=== PATIENT | female | born 1945 | race Caucasian/White ===

== ENCOUNTER 2021-02-12 17:45 | Inpatient (IN) ==
[2021-02-12] MEDS ORDERED: SODIUM CHLORIDE 0.9% 1000ML 1,000 ML IV ONE (18:33)
[2021-02-12] MEDS ORDERED: MoRPHine SULFATE 4 MG/ML 1 ML CARP\\VIAL IV STA (18:33)
[2021-02-12] MEDS ORDERED: ONDANSETRON INJ 2 MG/ML 2 ML VIAL IV STA (18:33)
[2021-02-12 19:31] LABS: Basophils # (auto) 0.01 K/uL (0-0.2); Basophils % (auto) 0.1 %; Eosinophils # (auto) 0.02 K/uL (0-0.5); Eosinophils % (auto) 0.2 %; Hematocrit (blood only) 39.1 % (37-47); Hemoglobin 13.6 g/dL (12.0-16.0); Immature Granulocytes # (auto) 0.01 K/uL (0.00-0.02); Immature Granulocytes % (auto) 0.1 %; Lymphocytes # (auto) 0.63 K/uL (1.2-3.4); Lymphocytes % (auto) 5.9 %; Mean Corpuscular Hemoglobin 30.3 pg (25-34); Mean Corpuscular Hgb Conc 34.8 g/dL (32-36); Mean Corpuscular Volume 87.1 fL (80-100); Mean Platelet Volume 10.5 fL (7.4-10.4); Monocytes # (auto) 0.66 K/uL (0.11-0.59); Monocytes % (auto) 6.2 %; Neutrophils # (auto) 9.38 K/uL (1.4-6.5); Neutrophils % (auto) 87.5 %; Platelet Count 218 K/uL (130-400); RDW Coefficient of Variation 12.6 % (11.5-14.5); RDW Standard Deviation 40.7 fL (36.4-46.3); Red Blood Count 4.49 M/uL (4.2-5.4); White Blood Count 10.71 K/uL (4.8-10.8)
[2021-02-12 20:07] LABS: Albumin Globulin Ratio 1.1 (0.9-2); Albumin Level 3.8 gm/dl (3.4-5.0); BUN Creatinine Ratio 17.6 (10-20); Bilirubin,Total 1.4 mg/dl (0.2-1); Calcium 9.1 mg/dl (8.5-10.1); Creatinine Clr Calc Pharmacy 57.8 ml/min; Est GFR (African American) 89.7 ml/min; Est GFR (Non-African American) 77.4 ml/min; Globulin 3.4 gm/dl (2.5-4.0); Potassium 3.8 mmol/L (3.5-5.1); Total Protein 7.2 gm/dl (6.4-8.2)
--- NOTE | 2021-02-12 20:12 | Emergency Department Note ---
Impression & Plan Acute epigastric pain, Pancreatitis due to biliary obstruction, Nausea & vomiting, Elevated LFTs ED Provider Note Provider: Mando Live MD DATE OF SERVICE: 02/12/2021 CHIEF COMPLAINT: Abdominal pain, nausea HISTORY OF PRESENT ILLNESS: Patient is a 75-year-old female history of hypertension presenting here today for reevaluation of abdominal pain and nausea. Patient states that symptoms started at 7 PM yesterday evening. Came in the ER overnight last night had a work-up. Ultrasound question some biliary sludge she was told that she could have some gallbladder issues. Evidently was advised to follow-up in the outpatient setting with general surgery. Patient states throughout the day today however she has had significant pain and has not been able to keep anything down. She been throwing up significantly. Denies any diarrhea. Denies significant abdominal tenderness. Denies feeling faint or chest pain or shortness of breath. Denies any history of abdominal surgeries. Patient states the pain is too severe for tolerated and she wants to have surgery if she needs it sooner rather than later. REVIEW OF SYSTEMS: A total of 10 review of systems was obtained and negative except as stated above in the HPI. PAST MEDICAL HISTORY: As noted above MEDICATIONS: Reviewed home medication list. SOCIAL HISTORY: Lives at home non-smoker PHYSICAL EXAM: GENERAL: alert and oriented in no acute distress on stretcher Head: normocephalic and atraumatic EYES: No injection, discharge or icterus. PERRL NECK: Trachea midline. Supple. ENT: Mucous membranes pink and moist. LUNGS: Airway patent. No retractions. Breath sounds clear with good air entry bilaterally. HEART: Regular rate and rhythm. No chest wall tenderness ABDOMEN: Soft and non-tender, without guarding or rebound. Negative Arnold sign. Not peritoneal. SKIN: Acyanotic, warm, dry, without rashes EXTREMITIES: Without swelling, tenderness or deformity NEUROLOGICAL: No focal deficits. No aphasia. No facial droop or slurred speech. EK beats. Normal sinus rhythm. No PVC or PAC. No acute ST segment elevation or depression. QTC 475. T wave inversions in V1 and V2 are noted. CONTINUOUS CARDIAC MONITORING: was ordered and showed a heart rate of 60s to 70s bpm in normal sinus rhythm Patient's laboratory studies and imaging reviewed. Differential includes Appendicitis, infections, diverticulitis, UTI, obstruction, mesenteric ischemia, aortic pathology, inflammatory bowel disease, renal colic, PUD, pancreatitis, biliary pathology, hernia, volvulus, constipation, as well as other pathologies. IMPRESSION/MEDICAL DECISION MAKING: Reviewed records from earlier this morning. Patient was significant pain but no tenderness. Repeated the ultrasound and blood work here. Lower suspicion is cardiac in etiology. Just had a negative Covid test this morning do not feel we need to repeat at this time. Given IV fluids and antiemetics and pain medication. Blood work does show evidence of slight increase in bilirubin to 1.4 and the AST is elevated 145 today as well as a lipase of 3778. Concern for possible pancreatitis with this versus biliary obstructive process. Ultrasound completed tonight question some gallbladder thickening developing acute cholecystitis. Patient on reevaluation without significant abdominal tenderness and was feeling better after pain medicine and nausea medicine. Given lipase elevation and slight increase in AST and bilirubin question of gallstone pancre atitis situation. Discussed with general surgery. Again given her benign abdominal exam agree with their assessment that MRCP and further evaluation for possible stone is reasonable. The hospitalist contacted for admission at this time. Discussed with the patient that she may actually need an ERCP depending on further testing. DIAGNOSIS: Gallstone pancreatitis, abdominal pain, nausea DISPOSITION: Hospitalist will evaluate Patient was agreeable with this plan. Past Med/Surg History Medical History (Updated 02/12/21 @ 22:31 by Mando Live M.D.) Chronic GERD Dyslipidemia Hypertension Surgical History (Updated 02/12/21 @ 05:32 by Michele Gordon PA-C) No significant past surgical history Social History Smoking Status: Never smoker Feels Safe at Home: Yes Allergies Allergies Allergy/AdvReac Type Severity Reaction Status Date / Time No Known Allergies Allergy Verified 02/12/21 18:46 Home Meds Home Medications Medication Instructions Recorded Confirmed ezetimibe 10 mg PO HS 02/12/21 02/12/21 ondansetron HCl [Zofran] 4 mg PO DIRECTED PRN 02/12/21 02/12/21 pindolol 5 mg PO BID 02/12/21 02/12/21 rosuvastatin 10 mg PO Q OTHER DAY 02/12/21 02/12/21 Previous Rx's Medication Instructions Recorded cephalexin 500 mg PO QID 7 Days #28 cap 02/12/21 Results & Data (ED) Vital Signs Vital Signs - 24 hr 02/12/21 17:57 02/12/21 19:46 02/12/21 21:00 Temperature 36.8 C Temperature Source Brar Cath ( Temp Sensing) Pulse Rate 73 Pulse Rate [Right Finger] 79 Pulse Rhythm [Right Finger] Regular Pulse Strength [Right Finger] Normal Respiratory Rate 16 17 18 Respiratory Effort / Characteristics Non-Labored Spontaneous Non-Labored Non-Labored Respiratory Depth Normal Normal Normal Blood Pressure 150/76 H Blood Pressure [Left Arm] 116/63 117/91 Blood Pressure Mean 100 Blood Pressure Mean [Left Arm] 80 99 Blood Pressure Position Sitting Blood Pressure Position [Left Arm] Sitting Lying Pulse Oximetry 987 H 98 99 Oxygen Delivery Method Room Air Room Air Room Air Sepsis Recent Fever Within 48 Hours No Sepsis New/Unexplained Change in Mental Status N/A Sepsis Action Taken by Nursing No Action Required Laboratory Data Result diagrams: 02/12/21 19:11 02/12/21 19:11 Lab Results 02/12/21 02/12/21 02/12/21 Range/Units 19:11 19:11 21:04 WBC 10.71 (4.8-10.8) K/uL RBC 4.49 (4.2-5.4) M/uL Hgb 13.6 (12.0-16.0) g/dL Hct 39.1 (37-47) % MCV 87.1 (80-100) fL MCH 30.3 (25-34) pg MCHC 34.8 (32-36) g/dL RDW Std Deviation 40.7 (36.4-46.3) fL RDW Coeff of Leida 12.6 (11.5-14.5) % Plt Count 218 (130-400) K/uL MPV 10.5 H (7.4-10.4) fL Immature Gran % (Auto) 0.1 % Neut % (Auto) 87.5 % Lymph % (Auto) 5.9 % Cobb % (Auto) 6.2 % Eos % (Auto) 0.2 % Baso % (Auto) 0.1 % Neut # (Auto) 9.38 H (1.4-6.5) K/uL Lymph # (Auto) 0.63 L (1.2-3.4) K/uL Cobb # (Auto) 0.66 H (0.11-0.59) K/uL Eos # (Auto) 0.02 (0-0.5) K/uL Baso # (Auto) 0.01 (0-0.2) K/uL Immature Gran # (Auto) 0.01 (0.00-0.02) K/uL Sodium 137 (136-145) mmol/L Potassium 3.8 (3.5-5.1) mmol/L Chloride 106 (98-107) mmol/L Carbon Dioxide 23 (21-32) mmol/L Anion Gap 8.0 (3-11) BUN 13 (7-18) mg/dl Creatinine 0.75 (0.6-1.2) mg/dl Est Cr Clr Drug Dosing 57.8 ml/min Est GFR ( Amer) 89.7 ml/min Est GFR (Non-Af Amer) 77.4 ml/min BUN/Creatinine Ratio 17.6 (10-20) Glucose 130 H (70-99) mg/dl Calcium 9.1 (8.5-10.1) mg/dl Total Bilirubin 1.4 H D (0.2-1) mg/dl AST 145 H (15-37) U/L ALT 45 (12-78) U/L Alkaline Phosphatase 78 (45-117) U/L Troponin I < 0.015 (0-0.045) ng/ml Total Protein 7.2 (6.4-8.2) gm/dl Albumin 3.8 (3.4-5.0) gm/dl Globulin 3.4 (2.5-4.0) gm/dl Albumin/Globulin Ratio 1.1 (0.9-2) Lipase 3778 H (73-393) U/L Administered Medications Discontinued Medications Sodium Chloride (Nss 1000ml) 1,000 mls @ 999 mls/hr IV .Q1H1M ONE Stop: 02/12/21 19:33 Last Infusion: 02/12/21 20:13 Dose: 0 mls/hr Documented by: [id number] Admin: 02/12/21 19:11 Dose: 999 mls/hr Documented by: [id number] Morphine Sulfate (Morphine Sulfate 4 Mg/Ml 1 Ml Carp\Vial) 4 mg IV NOW STA Stop: 02/12/21 18:34 Last Admin: 02/12/21 19:11 Dose: 4 mg Documented by: [id number] Ondansetron HCl (Ondansetron Inj 2 Mg/Ml 2 Ml Vial) 4 mg IV NOW STA Stop: 02/12/21 18:34 Last Admin: 02/12/21 19:11 Dose: 4 mg Documented by: [id number] Imaging Data Radiologist's Impression: Abdomen Ultrasound 02/12/21 18:56 ABDOMINAL ULTRASOUND COMPLETE HISTORY: Epigastric pain.. COMPARISON: Right upper quadrant ultrasound 02/12/2021. Abdomen and pelvis CT 02/12/2021. FINDINGS: Pancreas: The pancreas demonstrates a normal echotexture. Liver: Unremarkable. Gallbladder: Gallbladder wall thickening at 3 mm. Small gallstones and sludge are again noted. Trace pericholecystic fluid. The technologist was unable to assess for a sonographic Arnold's sign due to prior pain medication injection. The gallbladder appears mildly distended. CBD: 6 mm. Kidneys: No hydronephrosis. Trace left perinephric fluid. There is a 4.3 cm right lower pole cyst. Spleen: Normal in size measuring 9 cm in length. Linear hypoechoic focus along the splenic dome which could represent a small amount of subcapsular fluid or splenic infarct. This remains unchanged. Aorta: Normal in caliber. IVC: Patent. IMPRESSION: 1. Mildly distended gallbladder with mild gallbladder wall thickening and multiple small stones/sludge. This is concerning for acute cholecystitis. Clinical correlation recommended. 2. Stable linear hypoechoic focus along the splenic dome which could represent a small amount of subcapsular fluid or splenic infarct. ACT 112: Negative or not required by law. Electronically signed by: James Ann M.D. 02/12/2021 9:00 PM Discharge Plan Visit Data Chief Complaint: Abdominal Pain Stated Complaint: ABDOMINAL PAIN, NAUSEA, VOMITING ED Provider: Mando Live Discharge Problem: Acute epigastric pain, Pancreatitis due to biliary obstruction, Nausea & vomiting, Elevated LFTs Patient Disposition: Being Evaluated by Hospitalist Condition: Good Forms Stand Alone Forms: My [facility] Prescriptions Prescriptions: No Action pindolol 5 mg tablet 5 mg PO BID RF: 0 ezetimibe 10 mg tablet 10 mg PO HS RF: 0 rosuvastatin 10 mg tablet 10 mg PO Q OTHER DAY RF: 0 cephalexin 500 mg capsule 500 mg PO QID 7 Days Qty: 28 RF: 0 ondansetron HCl [Zofran] 4 mg Tablet 4 mg PO DIRECTED PRN (Reason: NAUSEA/VOMITING) RF: 0 Referrals Referrals: Vero Nieto PA-C [Primary Care Provider] - Discharge Problem: Pancreatitis due to biliary obstruction Qualifiers: Chronicity: acute Acute pancreatitis complication: no infection or necrosis Qualified Code(s): K85.10 - Biliary acute pancreatitis without necrosis or infection Nausea & vomiting Qualifiers: Vomiting type: unspecified Vomiting Intractability: non-intractable Qualified Code(s): R11.2 - Nausea with vomiting, unspecified
--- NOTE | 2021-02-12 21:01 | Ultrasound Report ---
ABDOMINAL ULTRASOUND COMPLETE HISTORY: Epigastric pain.. COMPARISON: Right upper quadrant ultrasound 02/12/2021. Abdomen and pelvis CT 02/12/2021. FINDINGS: Pancreas: The pancreas demonstrates a normal echotexture. Liver: Unremarkable. Gallbladder: Gallbladder wall thickening at 3 mm. Small gallstones and sludge are again noted. Trace pericholecystic fluid. The technologist was unable to assess for a sonographic Arnold's sign due to p rior pain medication injection. The gallbladder appears mildly distended. CBD: 6 mm. Kidneys: No hydronephrosis. Trace left perinephric fluid. There is a 4.3 cm right lower pole cyst. Spleen: Normal in size measuring 9 cm in length. Linear hypoechoic focus along the splenic dome which could represent a small amount of subcapsular fluid or splenic infarct. This remains unchanged. Aorta: Normal in caliber. IVC: Patent. IMPRESSION: 1. Mildly distended gallbladder with mild gallbladder wall thickening and multiple small stones/sludg e. This is concerning for acute cholecystitis. Clinical correlation recommended. 2. Stable linear hypoechoic focus along the splenic dome which could represent a small amount of subc apsular fluid or splenic infarct. ACT 112: Negative or not required by law. Electronically signed by: James Ann M.D. 02/12/2021 9:00 PM
--- NOTE | 2021-02-12 22:23 | Surgery Consultation ---
Date of Consultation February 12, 2021 Assessment & Plan (1) Cholelithiasis: (2) Acute cholecystitis due to biliary calculus: pt is a 75 year-old female who presents to Er with one day history RUQ pain, IMP: acute cholecystitis, cholelithiasis, pancreatitis, Plan, recommend - medicine team admit pt to hospital, conservative treatment first, NPO, IV fluid, IV antibiotic, control pain, MRCP, consult GI for possible ERCP for CBD stone, I will do laparoscopic cholecystectomy after ERCP and lipase down close to normal, repeat labs in morning,pt agrees with the plan, I answered all questions, will F/U Thanks, Present on Admission?: Yes (3) Pancreatitis due to biliary obstruction: History of Present Illness History of Present Illness CHIEF COMPLAINT: Abdominal pain, nausea HISTORY OF PRESENT ILLNESS: Patient is a 75-year-old female history of hypertension presenting here today for reevaluation of abdominal pain and nausea. Patient states that symptoms started at 7 PM yesterday evening. Came in the ER overnight last night had a work-up. Ultrasound question some biliary sludge she was told that she could have some gallbladder issues. Evidently was advised to follow-up in the outpatient setting with general surgery. Patient states throughout the day today however she has had significant pain and has not been able to keep anything down. She been throwing up significantly. Denies any diarrhea. Denies significant abdominal tenderness. Denies feeling faint or chest pain or shortness of breath. Denies any history of abdominal surgeries. Patient states the pain is too severe for tolerated and she wants to have surgery if she needs it sooner rather than later. I ( Maria Isabel Madrid MD ) got a call for consult acute cholecystitis with cholelithiasis, I reviewed pt's H/P, labs, U/S study with pt, pt has no significant RUQ pain after had morphine, REVIEW OF SYSTEMS: A total of 10 review of systems was obtained and negative except as stated above in the HPI. PAST MEDICAL HISTORY: As noted above MEDICATIONS: Reviewed home medication list. SOCIAL HISTORY: Lives at home Allergies Allergy/AdvReac Type Severity Reaction Status Date / Time No Known Allergies Allergy Verified 02/12/21 18:46 Home Medications Medication Instructions Recorded Confirmed Type cephalexin 500 mg PO QID 7 Days #28 cap 02/12/21 02/12/21 Rx ezetimibe 10 mg PO HS 02/12/21 02/12/21 History ondansetron HCl [Zofran] 4 mg PO DIRECTED PRN 02/12/21 02/12/21 History pindolol 5 mg PO BID 02/12/21 02/12/21 History rosuvastatin 10 mg PO Q OTHER DAY 02/12/21 02/12/21 History Patient History Medical History (Updated 02/12/21 @ 22:25 by Maria Isabel Madrid MD) Chronic GERD Dyslipidemia Hypertension Surgical History (Updated 02/12/21 @ 05:32 by Michele Gordon PA-C) No significant past surgical history Social History Smoking Status: Never smoker Feels Safe at Home: Yes Review of Systems Review of Systems: All systems reviewed & are unremarkable except as noted in HPI & below Constitutional: as per Subjective / HPI Eyes: as per Subjective / HPI Ear, Nose, Mouth, Throat: as per Subjective / HPI Respiratory: as per Subjective / HPI Cardiovascular: as per Subjective / HPI Additional Comments: HTN Gastrointestinal: as per Subjective / HPI GERD, cholelithiasis Genitourinary: urinary frequency Musculoskeletal: as per Subjective / HPI Integumentary: as per Subjective / HPI Neurologic: as per Subjective / HPI Psychiatric: as per Subjective / HPI Endocrine: as per Subjective / HPI Hematologic / Lymphatic: as per Subjective / HPI Physical Exam Constitutional: WD/WN, vitals as above well developed and well nourished Eyes: PERRL, conjunctivae normal, anicteric sclerae ENMT: external ear and nose normal, oropharynx normal Neck: trachea midline, no thyromegaly Respiratory: normal respiratory effort, lungs clear to auscultation normal respiratory effort Cardiovascular: RRR, no murmur, no edema Rate/Rhythm: regular rate and regular rhythm Gastrointestinal (Abdomen): normal bowel sounds, soft, nontender, no hepatosplenomegaly Percussion/Palpation: abdomen soft mild tenderness at RUQ, no rebound pain, no distend, BS + Musculoskeletal: no cyanosis or clubbing, extremities motor strength 5/5 Skin: no rashes, warm and dry Neurologic: awake Psychiatric: Orientation: alert and oriented x 3 Results & Data (MN) Vital Signs (Past 12 Hours) Vital Signs Temp Pulse Resp BP BP Pulse Ox 02/12/21 19:46 17 116/63 98 02/12/21 17:57 36.8 C 73 16 150/76 H 987 H Laboratory Results Abnormal lab results 02/12/21 02/12/21 Range/Units 19:11 19:11 MPV 10.5 H (7.4-10.4) fL Neut # (Auto) 9.38 H (1.4-6.5) K/uL Lymph # (Auto) 0.63 L (1.2-3.4) K/uL Parke # (Auto) 0.66 H (0.11-0.59) K/uL Glucose 130 H (70-99) mg/dl Total Bilirubin 1.4 H D (0.2-1) mg/dl AST 145 H (15-37) U/L Lipase 3778 H (73-393) U/L Diagnostic Findings ABDOMINAL ULTRASOUND COMPLETE HISTORY: Epigastric pain.. COMPARISON: Right upper quadrant ultrasound 02/12/2021. Abdomen and pelvis CT 02/12/2021. FINDINGS: Pancreas: The pancreas demonstrates a normal echotexture. Liver: Unremarkable. Gallbladder: Gallbladder wall thickening at 3 mm. Small gallstones and sludge are again noted. Trace pericholecystic fluid. The technologist was unable to assess for a sonographic Arnold's sign due to prior pain medication injection. The gallbladder appears mildly distended. CBD: 6 mm. Kidneys: No hydronephrosis. Trace left perinephric fluid. There is a 4.3 cm right lower pole cyst. Spleen: Normal in size measuring 9 cm in length. Linear hypoechoic focus along the splenic dome which could represent a small amount of subcapsular fluid or splenic infarct. This remains unchanged. Aorta: Normal in caliber. IVC: Patent. IMPRESSION: 1. Mildly distended gallbladder with mild gallbladder wall thickening and multiple small stones/sludge. This is concerning for acute cholecystitis. Clinical correlation recommended. 2. Stable linear hypoechoic focus along the splenic dome which could represent a small amount of subcapsular fluid or splenic infarct. ABDOMINAL ULTRASOUND, RIGHT UPPER QUADRANT HISTORY: Epigastric pain. CT with stones/thickening. COMPARISON: None. Correlation is made with CT of the abdomen and pelvis performed on February 12, 2021 at 4:46 hours. FINDINGS: Pancreas: The pancreas demonstrates a normal echotexture. No evidence of focal lesions. Pancreatic duct is visible in nondilated. Liver: Unremarkable. Gallbladder: Gallbladder is distended with fluid with normal wall thickening and measuring 1.2 mm. Multiple echogenic foci are seen within gallbladder lumen which could represent gallstones and/or gallbladder sludge. Mild pericholecystic edema is seen. Regulatory Analyst was not able to evaluate Arnold's sign. CBD: 0.5 cm. Right kidney: Measuring 9.8 x 4.3 cm in size and shows normal cortical thickness and echogenicity. No evidence of hydronephrosis. There is 4.4 x 3.2 x 2.1 heterogeneous hypoechoic lesion within inferior aspect of the right kidney likely representing simple cyst which was also seen on recent prior CT of abdomen and pelvis. IMPRESSION: Gallstones/gallbladder sludge with mild pericholecystic edema, findings could represent developing cholecystitis. (1) Cholelithiasis Biliary obstruction: without biliary obstruction Cholecystitis presence: without cholecystitis Cholelithiasis location: gallbladder Qualified Code(s): K80.20 - Calculus of gallbladder without cholecystitis without obstruction
[2021-02-13] MEDS ORDERED: HYDROmorphone INJ 0.5 MG/0.5 ML SYR IV PRN (02:00)
[2021-02-13] MEDS ORDERED: ACETAMINOPHEN 325 MG TAB PO PRN (02:00)
[2021-02-13] MEDS ORDERED: PIPERACILL/TAZOBAC CONSULT ACTIVE PRN (02:00)
[2021-02-13] MEDS ORDERED: ONDANSETRON INJ 2 MG/ML 2 ML VIAL IV PRN ×2 (02:00→09:36)
[2021-02-13] MEDS: LACTATED RINGER'S 1,000 ML IV SCH ×4 (03:10→14:15)
[2021-02-13] MEDS ORDERED: PIPERACILLIN/TAZOBACTAM 3.375 GM in DEXTROSE 5% 100 ML IV ONE (03:30)
--- NOTE | 2021-02-13 05:45 | History and Physical Report ---
DATE OF ADMISSION: 02/13/2021 CHIEF COMPLAINT: Abdominal pain. HISTORY OF PRESENT ILLNESS: The patient is 75-year-old woman with past medical history significant for hypertension, hyperlipidemia, presents with abdominal pain, and found to have gallstone pancreatitis and cholecystitis. She was in Er earlier in the day workup showed gall bladder sludge discharged to followup as out patient. But was having severe abdominal pain and nausea and came back.. . Currently, pain is under control. No nausea no fever, no chest pain, no shortness of breath, no cough, no headache, no blurred vision, no earache, no runny nose, no sore throat, no nausea. Currently resting comfortable and hemodynamically stable. ALLERGIES: No known drug allergies. PAST MEDICAL HISTORY: As mentioned. PAST SURGICAL HISTORY: Biopsy of uterus lining, D and C. ligation of oviduct. MEDICATIONS: The patient is on ezetimibe 10 mg p.o. at bedtime, Zofran 4 mg p.o. q. 4 hours p.r.n., pindolol 5 mg p.o. b.i.d., Crestor 10 mg p.o. every other day. FAMILY HISTORY: Significant for mother had stomach cancer. Uncle had prostate cancer. Father had CAD. SOCIAL HISTORY: No smoking, no alcohol, no drug use. REVIEW OF SYMPTOMS: As per HPI. Rest of review of systems negative. PHYSICAL EXAMINATION: GENERAL: The patient is of moderate build, not in acute distress. VITAL SIGNS: Temperature 36.8, pulse 64, respiratory rate 20, blood pressure 108/71 96% room air. HEENT: Pupils equal, round, reactive to light. Oral mucosa moist. NECK: No JVD. No neck masses, no carotid bruit. CARDIOVASCULAR: S1 and S2 heard.. No murmur, no gallop. RESPIRATORY SYSTEM: Normal AP diameter. No accessory muscle use. No wheezing, no crackles. ABDOMEN: Soft, bowel sounds present, nontender. no distension. CENTRAL NERVOUS SYSTEM: Cranial nerve II-XII grossly intact, nonfocal. EXTREMITIES: No edema, no erythema. LABORATORY DATA: WBC 10.7, hemoglobin 13.8, hematocrit 39.1, platelets 218. Sodium 132, potassium 3.8, chloride 102, bicarbonate 23, BUN 13, creatinine 0.7, serum glucose 130, calcium 9.1, total bilirubin 1.4, AST 143, ALT 45, alkaline phosphatase 78, troponin I less than 0.015. Lipase 3778. Abdominal ultrasound, mildly distended gallbladder with mild gall bladder wall thickening, multiple small stones concern for cholecystitis EKG: Normal sinus rhythm at a rate of 72. Non specific st changes. ASSESSMENT AND PLAN: The patient is 75-year-old woman presents with gall stone pancreatitis and cholecystitis. Gall stone pancreatitis cholecystitis mild elevation of bilirubin plan for mrcp npo, aggressive fluids, pain control repeat lipase in am empiric zosyn Surgery and GI consult _ History of hyperlipidemia, continue home meds. Deep venous thrombosis prophylaxis, sequential compression devices. DISPOSITION: Monitor in the tele floor. Expect discharge home and follow with family doctor. Level 1 full code. MTDD
[2021-02-13 07:00] LABS: Basophils # (auto) 0.01 K/uL (0-0.2); Basophils % (auto) 0.2 %; Eosinophils # (auto) 0.03 K/uL (0-0.5); Eosinophils % (auto) 0.6 %; Hemoglobin 10.8 g/dL (12.0-16.0); Lymphocytes # (auto) 0.98 K/uL (1.2-3.4); Lymphocytes % (auto) 18.2 %; Mean Corpuscular Hemoglobin 30.4 pg (25-34); Mean Corpuscular Hgb Conc 33.8 g/dL (32-36); Mean Corpuscular Volume 90.1 fL (80-100); Mean Platelet Volume 9.9 fL (7.4-10.4); Monocytes # (auto) 0.56 K/uL (0.11-0.59); Monocytes % (auto) 10.4 %; Neutrophils # (auto) 3.79 K/uL (1.4-6.5); Neutrophils % (auto) 70.6 %; Platelet Count 184 K/uL (130-400); RDW Coefficient of Variation 12.8 % (11.5-14.5); RDW Standard Deviation 42.1 fL (36.4-46.3); Red Blood Count 3.55 M/uL (4.2-5.4); White Blood Count 5.37 K/uL (4.8-10.8)
--- NOTE | 2021-02-13 07:26 | Magnetic Resonance Report ---
MR MRCP CLINICAL HISTORY: Gallstone pancreatitis. Elevated bilirubin. Possible common bile duct calculus. COMPARISON STUDY: Abdominal ultrasound dated 02/12/2021, CT scan dated 02/12/2021 FINDINGS: A breath-hold MRCP was performed. MIP images were acquired. There is trace perihepatic fluid. There is no pancreatic ductal dilatation. The common bile duct is of normal caliber. There are no bile duct filling defects to indicate calculi . There are multiple gallstones. There is pericholecystic fluid. There is a distended cystic duct with a possible calculus At the level of the common duct confluence. There is a 5 cm cyst arising from the lower pole the righ t kidney. IMPRESSION: 1. Cholelithiasis with pericholecystic fluid. Distended cystic duct with a possible calculus near the common bile duct confluence. The findings may represent acute cholecystitis. Correlation with a [facility] hepatobiliary scan to assess cystic duct patency could be obtained as deemed clinically appropriate. 2. No evidence of intra or extrahepatic biliary ductal dilatation. No common bile duct calculi identi fied 3. Normal caliber pancreatic duct. 4. Trace perihepatic fluid. ACT 112: Negative or not required by law. Electronically signed by: Nacho Foster M.D. 02/13/2021 7:24 AM
--- NOTE | 2021-02-13 07:29 | Progress Note ---
Date of Service pt is stable overnight, no significant abdominal pain, MRCP- cystic duct stone, no CBD stone, February 13, 2021 Assessment & Plan (1) Cholelithiasis: Biliary obstruction: without biliary obstruction Cholecystitis presence: without cholecystitis Cholelithiasis location: gallbladder Qualified Code(s): K80.20 - Calculus of gallbladder without cholecystitis without obstr uction (2) Acute cholecystitis due to biliary calculus: pt is a 75 year-old female who presents to Er with one day history RUQ pain, IMP: acute cholecystitis, cholelithiasis, pancreatitis, Plan, recommend - medicine team admit pt to hospital, conservative treatment first, NPO, IV fluid, IV antibiotic, control pain, MRCP, consult GI for possible ERCP for CBD stone, I will do laparoscopic cholecystectomy after ERCP and lipase down close to normal, repeat labs in morning,pt agrees with the plan, I answered all questions, will F/U Thanks, 02/13/2021 7:27AM acute cholecystitis, cholelithiasis MRCP- acute cholecystitis, cholelithiasis, I recommend to do laparoscopic cholecystectomy, possible open or cholangiogram, D/w benefits, risks nad alternatives of the surgery, the risks - infection, bleeding, injury other organs, may need ERCP, [place], DVT, stroke, , pt understood, she agrees with the surgery, I answered all questions, (3) Pancreatitis due to biliary obstruction: Acute pancreatitis complication: no infection or necrosis Chronicity: acute Qualified Code(s): K85.10 - Biliary acute pancreatitis without necrosis or infection Admission and Anticipated Discharge Date Admission Date: February 13, 2021 Review of Systems Constitutional: as per Subjective / HPI Eyes: as per Subjective / HPI Ear, Nose, Mouth, Throat: as per Subjective / HPI Respiratory: as per Subjective / HPI Cardiovascular: as per Subjective / HPI Additional Comments: HTN Gastrointestinal: as per Subjective / HPI GERD, cholelithiasis Genitourinary: urinary frequency Musculoskeletal: as per Subjective / HPI Integumentary: as per Subjective / HPI Neurologic: as per Subjective / HPI Psychiatric: as per Subjective / HPI Endocrine: as per Subjective / HPI Hematologic / Lymphatic: as per Subjective / HPI Physical Exam Constitutional: WD/WN, vitals as above well developed and well nourished Eyes: PERRL, conjunctivae normal, anicteric sclerae ENMT: external ear and nose normal, oropharynx normal Neck: trachea midline, no thyromegaly Respiratory: normal respiratory effort, lungs clear to auscultation normal respiratory effort Cardiovascular: RRR, no murmur, no edema Rate/Rhythm: regular rate and reg ular rhythm Gastrointestinal (Abdomen): normal bowel sounds, soft, nontender, no hepatosplenomegaly Percussion/Palpation: abdomen soft Musculoskeletal: no cyanosis or clubbing, extremities motor strength 5/5 Skin: no rashes, warm and dry Neurologic: awake Psychiatric: Orientation: alert and oriented x 3 Results & Data ([facility]) Vital Signs (Past 12 Hours) Vital Signs Temp Pulse Resp BP Pulse Ox 02/13/21 02:10 37 C 74 16 117/63 97 02/13/21 01:00 64 17 108/71 98 02/12/21 23:00 67 16 102/56 L 99 02/12/21 21:00 79 18 117/91 99 02/12/21 19:46 17 116/63 98
[2021-02-13 07:33] LABS: Albumin Level 2.9 gm/dl (3.4-5.0); BUN Creatinine Ratio 15.3 (10-20); Bilirubin Direct 0.4 mg/dl (0-0.2); Calcium 8.8 mg/dl (8.5-10.1); Creatinine Clr Calc Pharmacy 57.4 ml/min; Est GFR (African American) 89.7 ml/min; Est GFR (Non-African American) 77.4 ml/min; Magnesium 2.8 mg/dl (1.8-2.4); Potassium 3.6 mmol/L (3.5-5.1)
[2021-02-13 07:47] LABS: Bilirubin,Total 1.5 mg/dl (0.2-1); Total Protein 5.7 gm/dl (6.4-8.2)
[2021-02-13] MEDS: PIPERACILLIN/TAZOBACTAM 3.375 GM in DEXTROSE 5% 100 ML IV SCH ×2 (09:06→17:11)
--- NOTE | 2021-02-13 09:22 | Gastrointestinal Consultation ---
Date of Consultation February 13, 2021 Assessment & Plan (1) Pancreatitis due to biliary obstruction: (2) Elevated LFTs: History of Present Illness Reason for Consultation: gallstone pancreatitis Requesting Physician: Dr. Spring Attending Physician: Alexandre Otto MD History of Present Illness This is a 75 y/o female with PMHx HTN, HLD and others who developed abd pain and nausea 2 days ago. She came to the ER - US ABD with distended B with multiple stones/sludge, CBD 6 mm. She was sent home and advised to f/u with gen surgery. She returned yesterday with worsening symptoms. Labs with tbili IMP: acute cholecystitis, cholelithiasis, pancreatitis, Plan, recommend - medicine team admit pt to hospital, conservative treatment first, NPO, IV fluid, IV antibiotic, control pain, MRCP, consult GI for possible ERCP for CBD stone, I will do laparoscopic cholecystectomy after ERCP and lipase down close to normal, repeat labs in morning,pt agrees with the plan, I answered all questions, will F/U Thanks, Present on Admission?: Yes (3) Pancreatitis due to biliary obstruction: Allergies Allergy/AdvReac Type Severity Reaction Status Date / Time No Known Allergies Allergy Verified 02/12/21 18:46 Home Medications Medication Instructions Recorded Confirmed Type cephalexin 500 mg PO QID 7 Days #28 cap 02/12/21 02/12/21 Rx ezetimibe 10 mg PO HS 02/12/21 02/12/21 History ondansetron HCl [Zofran] 4 mg PO DIRECTED PRN 02/12/21 02/12/21 History pindolol 5 mg PO BID 02/12/21 02/12/21 History rosuvastatin 10 mg PO Q OTHER DAY 02/12/21 02/12/21 History Patient History Medical History (Updated 02/12/21 @ 22:31 by Mando Live M.D.) Chronic GERD Dyslipidemia Hypertension Surgical History (Updated 02/12/21 @ 05:32 by Michele Gordon PA-C) No significant past surgical history Social History Smoking Status: Never smoker Second Hand Exposure: No; Do You Dip or Chew Tobacco: No; Tobacco Cessation Education Requested by Patient: No Hx Alcohol Use: No Hx Substance Use: No Preferred Language: Kuwaiti Communication Ability: Effective Dye Mixer Required: No Beliefs That Will Affect Care: None Current Living Situation: Alone Other Information That Helps Us Care for You: No Feels Safe at Home: Yes Safety Concerns: Feels Safe At This Time Assistive Devices: Denture - Upper, Denture - Lower and Glasses Results & Data ([facility]) Vital Signs (Past 12 Hours) Vital Signs Temp Pulse Pulse Resp BP Pulse Ox 02/13/21 07:40 37 C 75 18 138/66 98 02/13/21 02:10 37 C 74 16 117/63 97 02/13/21 01:00 64 17 108/71 98 02/12/21 23:00 67 16 102/56 L 99 Laboratory Results 02/13/21 02/13/21 02/12/21 Range/Units 06:43 06:43 21:04 WBC 5.37 (4.8-10.8) K/uL RBC 3.55 L (4.2-5.4) M/uL Hgb 10.8 L (12.0-16.0) g/dL Hct 32.0 L (37-47) % MCV 90.1 (80-100) fL MCH 30.4 (25-34) pg MCHC 33.8 (32-36) g/dL RDW Std Deviation 42.1 (36.4-46.3) fL RDW Coeff of Leida 12.8 (11.5-14.5) % Plt Count 184 (130-400) K/uL MPV 9.9 (7.4-10.4) fL Immature Gran % (Auto) 0.0 % Neut % (Auto) 70.6 % Lymph % (Auto) 18.2 % Bureau % (Auto) 10.4 % Eos % (Auto) 0.6 % Baso % (Auto) 0.2 % Neut # (Auto) 3.79 (1.4-6.5) K/uL Lymph # (Auto) 0.98 L (1.2-3.4) K/uL Bureau # (Auto) 0.56 (0.11-0.59) K/uL Eos # (Auto) 0.03 (0-0.5) K/uL Baso # (Auto) 0.01 (0-0.2) K/uL Immature Gran # (Auto) 0.00 (0.00-0.02) K/uL Sodium 142 (136-145) mmol/L Potassium 3.6 (3.5-5.1) mmol/L Chloride 111 H (98-107) mmol/L Carbon Dioxide 26 (21-32) mmol/L Anion Gap 5.0 (3-11) BUN 11 (7-18) mg/dl Creatinine 0.75 (0.6-1.2) mg/dl Est Cr Clr Drug Dosing 57.4 ml/min Est GFR ( Amer) 89.7 ml/min Est GFR (Non-Af Amer) 77.4 ml/min BUN/Creatinine Ratio 15.3 (10-20) Glucose 83 (70-99) mg/dl Calcium 8.8 (8.5-10.1) mg/dl Magnesium 2.8 H (1.8-2.4) mg/dl Total Bilirubin 1.5 H (0.2-1) mg/dl Direct Bilirubin 0.4 H (0-0.2) mg/dl AST 90 H (15-37) U/L ALT 53 (12-78) U/L Alkaline Phosphatase 61 (45-117) U/L Troponin I < 0.015 (0-0.045) ng/ml Total Protein 5.7 L D (6.4-8.2) gm/dl Albumin 2.9 L (3.4-5.0) gm/dl Globulin (2.5-4.0) gm/dl Albumin/Globulin Ratio (0.9-2) Lipase 1348 H (73-393) U/L 02/12/21 02/12/21 Range/Units 19:11 19:11 WBC 10.71 (4.8-10.8) K/uL RBC 4.49 (4.2-5.4) M/uL Hgb 13.6 (12.0-16.0) g/dL Hct 39.1 (37-47) % MCV 87.1 (80-100) fL MCH 30.3 (25-34) pg MCHC 34.8 (32-36) g/dL RDW Std Deviation 40.7 (36.4-46.3) fL RDW Coeff of Leiad 12.6 (11.5-14.5) % Plt Count 218 (130-400) K/uL MPV 10.5 H (7.4-10.4) fL Immature Gran % (Auto) 0.1 % Neut % (Auto) 87.5 % Lymph % (Auto) 5.9 % Bureau % (Auto) 6.2 % Eos % (Auto) 0.2 % Baso % (Auto) 0.1 % Neut # (Auto) 9.38 H (1.4-6.5) K/uL Lymph # (Auto) 0.63 L (1.2-3.4) K/uL Bureau # (Auto) 0.66 H (0.11-0.59) K/uL Eos # (Auto) 0.02 (0-0.5) K/uL Baso # (Auto) 0.01 (0-0.2) K/uL Immature Gran # (Auto) 0.01 (0.00-0.02) K/uL Sodium 137 (136-145) mmol/L Potassium 3.8 (3.5-5.1) mmol/L Chloride 106 (98-107) mmol/L Carbon Dioxide 23 (21-32) mmol/L Anion Gap 8.0 (3-11) BUN 13 (7-18) mg/dl Creatinine 0.75 (0.6-1.2) mg/dl Est Cr Clr Drug Dosing 57.8 ml/min Est GFR ( Amer) 89.7 ml/min Est GFR (Non-Af Amer) 77.4 ml/min BUN/Creatinine Ratio 17.6 (10-20) Glucose 130 H (70-99) mg/dl Calcium 9.1 (8.5-10.1) mg/dl Magnesium (1.8-2.4) mg/dl Total Bilirubin 1.4 H D (0.2-1) mg/dl Direct Bilirubin (0-0.2) mg/dl AST 145 H (15-37) U/L ALT 45 (12-78) U/L Alkaline Phosphatase 78 (45-117) U/L Troponin I (0-0.045) ng/ml Total Protein 7.2 (6.4-8.2) gm/dl Albumin 3.8 (3.4-5.0) gm/dl Globulin 3.4 (2.5-4.0) gm/dl Albumin/Globulin Ratio 1.1 (0.9-2) Lipase 3778 H (73-393) U/L Diagnostic Findings MRCP: 1. Cholelithiasis with pericholecystic fluid. Distended cystic duct with a possible calculus near the common bile duct confluence. The findings may represent acute cholecystitis. Correlation with a nuclear medicine hepatobiliary scan to assess cystic duct patency could be obtained as deemed clinically appropriate. 2. No evidence of intra or extrahepatic biliary ductal dilatation. No common bile duct calculi identified 3. Normal caliber pancreatic duct. 4. Trace perihepatic fluid. CTAP: 1. Mildly distended gallbladder with mild gallbladder wall thickening and multip le small stones/sludge. This is concerning for acute cholecystitis. Clinical correlation recommended. 2. Stable linear hypoechoic focus along the splenic dome which could represent a small amount of subcapsular fluid or splenic infarct. (1) Pancreatitis due to biliary obstruction Acute pancreatitis complication: no infection or necrosis Chronicity: acute Qualified Code(s): K85.10 - Biliary acute pancreatitis without necrosis or infection
--- NOTE | 2021-02-13 09:27 | History & Physical Bridge Note ---
Date of Service February 13, 2021 History & Physical Bridge Note I have examined the patient, reviewed the History & Physical and in the interval since the performance of the History & Physical I have noted the following changes of clinical significance: no changes noted
[2021-02-13] MEDS ORDERED: ceFAZolin 2,000 MG/15 ML IV PUSH IV ONE (09:28)
[2021-02-13] MEDS ORDERED: HYDROmorphone INJ 2 MG/ML SYR/VIAL IV PRN (09:36)
[2021-02-13] MEDS ORDERED: ePHEDrine sulfate 50 MG/ML AMP IV PRN (09:36)
[2021-02-13] MEDS ORDERED: fentaNYL citrate 100 MCG/2 ML VIAL IV PRN (09:36)
[2021-02-13] MEDS ORDERED: ATROPINE SULFATE 0.1 MG/ML 10ML SYR IV PRN (09:36)
--- NOTE | 2021-02-13 09:36 | Anesthesiology Consultation ---
Date of Service February 13, 2021 Assessment & Plan ASA ASA3 Proposed Anesthesia Anesthesia Type: General Risk / Benefits Reviewed With: PT / POA / Parent / Guardian, Accepts Plan and Informed Consent Obtained History Surgery Operation Date: 02/13/21 09:40 Proposed Procedures p Laparoscopic Cholecystectomy, Possible Open - Maria Isabel Madrid MD Height/Weight Height: 5 ft 6 in Weight: 57 kg Allergies Allergy/AdvReac Type Severity Reaction Status Date / Time No Known Allergies Allergy Verified 02/12/21 18:46 Medications Home Medications Medication Instructions Recorded Confirmed Last Taken cephalexin 500 mg PO QID 7 Days #28 cap 02/12/21 02/12/21 Unknown ezetimibe 10 mg PO HS 02/12/21 02/12/21 02/11/21 ondansetron HCl [Zofran] 4 mg PO DIRECTED PRN 02/12/21 02/12/21 02/12/21 pindolol 5 mg PO BID 02/12/21 02/12/21 02/11/21 rosuvastatin 10 mg PO Q OTHER DAY 02/12/21 02/12/21 02/11/21 Active Medications Generic Name Dose Route Start Last Admin Trade Name Freq PRN Reason Stop Dose Admin Lactated Ringer's 1,000 mls @ 200 mls/hr 02/13/21 02:00 02/13/21 09:09 Lr IV 03/15/21 01:59 200 mls/hr .Q5H CARLI Administration Piperacillin Sod/Tazobactam 115 mls @ 28.75 mls/hr 02/13/21 08:00 02/13/21 09:06 Sod 3.375 gm/ Dextrose IV 02/23/21 07:59 28.8 mls/hr Q8H CARLI Administration Protocol Miscellaneous 1 ea 02/13/21 08:00 02/13/21 08:35 Pindolol - Order Awaiting Action N/A 03/15/21 07:59 Not Given QS CARIL NPO Date Last Intake of Fluids: 02/13/21 Time Last Intake of Fluids: 02:10 Date Last Intake of Solids: 02/13/21 Time Last Intake of Solids: 02:10 Past Medical History Medical History Chronic GERD Dyslipidemia Hypertension Exercise / Class Metabolic Activity II 4-5 Yardwork/Stairs/Walk up hill Past Surgical History Surgical History No significant past surgical history Past Anesthesia History No Hx of Anesthesia Complications and No Family Hx of Anesthesia Complications History of PONV No Hx of PONV and No Hx of Motion Sickness Social History Smoking Status: Never smoker Do You Dip or Chew Tobacco: No Hx Alcohol Use: No Hx Substance Use: No Review of Systems denies fever/cough/ colds/ chest pain/ SOB/ ALLA denies ALLA Physical Exam Vital Signs Last Vital Signs Temp 37 C 02/13/21 07:40 Pulse 75 02/13/21 07:40 Resp 18 02/13/21 07:40 BP 138/66 02/13/21 07:40 Pulse Ox 98 02/13/21 07:40 ENMT Mouth: + edentulous Thyromental Distance: > or= 3.5 Finger Breadths Mallampati Class: IV Neck neck extension not limited Respiratory normal respiratory effort; no respiratory distress Auscultation: lungs clear to auscultation bilaterally Cardiovascular Rate/Rhythm: regular rate and regular rhythm Neurologic moves all extremities Psychiatric Orientation: alert and oriented x 3 Testing Laboratory Results 02/13/21 06:43 02/13/21 06:43
[2021-02-13] MEDS ORDERED: ceFAZolin 2000MG 2,000 MG/15 ML SYR IV ONE (09:45)
[2021-02-13] MEDS ORDERED: BACITRACIN OINT 15 GM TUBE ONE (09:45)
[2021-02-13] MEDS ORDERED: fentaNYL citrate 100 MCG/2 ML VIAL ONE (09:45)
[2021-02-13] MEDS ORDERED: LIDOCAINE 1% LOCAL 20 ML VIAL ONE (09:45)
[2021-02-13] MEDS ORDERED: MIDAZOLAM HCL 1 MG/ML 2ML VIAL ONE (09:45)
[2021-02-13] MEDS ORDERED: BUPIVACAINE 0.5 % 5 MG/1 ML MPF 30ML VIAL ONE (09:45)
--- NOTE | 2021-02-13 10:37 | Communication Note ---
Date of Service: February 13, 2021 75 y/o female admitted through the ED yesterday with 2 days of abd pain, found to have elevated lipase, tbili, and US ABD with findings concerning for cholec ystitis, ? gallstone pancreatitis and GI asked to evaluate for need for ERCP. Lipase trending down. MRCP was obtained and notable for multiple gallstones and pericholecystic fluid, distended cystic duct with possible calculus, and CBD with normal caliber and no filling defects. Pancreas and PD appeared normal on recent imaging. Pt was taken for cholecystectomy this AM prior to my being able to evaluate her. Given lack of evidence for CBD dilation/filling defect would defer ERCP; await surgical findings, trend LFTs/lipase, and re-call GI if needed.
[2021-02-13] MEDS ORDERED: ROCURONIUM BROMIDE 10 MG/ML 5 ML VIAL IV ONE (10:38)
[2021-02-13] MEDS ORDERED: GLYCOPYRROLATE 0.2 MG/ML VIAL ONE (10:38)
[2021-02-13] MEDS ORDERED: PROPOFOL IV EMULSION 10 MG/ML 20 ML VIAL IV ONE (10:38)
[2021-02-13] MEDS ORDERED: NEOSTIGMINE METHYLSULFATE 1 MG/ML 10ML VIAL ONE (10:38)
[2021-02-13] MEDS ORDERED: ONDANSETRON INJ 2 MG/ML 2 ML VIAL ONE (10:38)
[2021-02-13] MEDS ORDERED: DEXAMETHASONE SOD INJ 4 MG/ML VIAL ONE (10:38)
[2021-02-13] MEDS ORDERED: LIDOCAINE 2% 2 ML VIAL/AMP(20MG/ML) INFIL ONE (10:38)
--- NOTE | 2021-02-13 10:59 | Post Operative Brief Note ---
Immediate Post Op Note v1 Date of Surgery February 13, 2021 Pre & Post Diagnosis Operation Date: 02/13/21 09:40 Pre-Op Diagnosis: acute cholecystitis, Cholelithiasis Post-Op Diagnosis: Acute cholecystitis, Cholelithiasis I identified the patient and participated in the time-out.: Yes Procedure Operation Date: 02/13/21 09:40 Actual Procedures p Laparoscopic Cholecystectomy(Not Applicable) - Maria Isabel Madrid MD Surgeon Maria Isabel Madrid MD Heel Lift Gouger BRYSON Salazar Estimated Blood Loss 10 Findings Consistent with Post-Op Diagnosis significant inflammation on gallbladder wall, Fluids 700ml Specimens gallbladder Anesthesia Type General Complications none Disposition Accompanied Patient To Recovery: Yes Disposition: Recovery Room Overlapping Procedure I was immediately available: during the entire case.
--- NOTE | 2021-02-13 11:43 | Anesthesiology Progress Note ---
Date of Service February 13, 2021 Anesthesia Post Procedure Vital Signs Vital Signs: Temp Pulse Pulse Pulse Pulse Resp BP 02/13/21 11:40 69 18 02/13/21 11:30 65 17 02/13/21 11:22 36.4 C L 78 14 02/13/21 09:39 37 C 73 16 02/13/21 07:40 37 C 75 18 02/13/21 02:10 37 C 74 16 02/13/21 01:00 64 17 02/12/21 23:00 67 16 02/12/21 21:00 79 18 02/12/21 19:46 17 02/12/21 17:57 36.8 C 73 16 150/76 H BP BP Pulse Ox 02/13/21 11:40 137/69 97 02/13/21 11:30 140/74 99 02/13/21 11:22 145/74 H 99 02/13/21 09:39 114/84 97 02/13/21 07:40 138/66 98 02/13/21 02:10 117/63 97 02/13/21 01:00 108/71 98 02/12/21 23:00 102/56 L 99 02/12/21 21:00 117/91 99 02/12/21 19:46 116/63 98 02/12/21 17:57 987 H Pain Intensity Right Upper Abdomen: Pain Intensity: 0 Transfer of Care Handoff Completed per policy Notes Mental Status: alert / awake / arousable and participated in evaluation Patient Amnestic to Procedure: Yes Nausea / Vomiting: adequately controlled Pain: adequately controlled Airway Patency, RR, SpO2: stable & adequate BP & HR: stable & adequate Hydration State: stable & adequate Anesthetic Complications: no major complications apparent and Pt Satisfied with anesthetic care
--- NOTE | 2021-02-13 11:46 | Operative Report (OR) ---
DATE OF OPERATION: 02/13/2021 PREOPERATIVE DIAGNOSES: Acute cholecystitis, cholelithiasis. POSTOPERATIVE DIAGNOSES: Acute cholecystitis, cholelithiasis. OPERATION: Laparoscopic cholecystectomy. SURGEON: Maria Isabel Madrid MD. BERRY GROWER: Sasha Garcia PA-C. ANESTHESIA: General. ESTIMATED BLOOD LOSS: About 10 mL. FINDINGS: Significant inflammation on the gallbladder wall, gallbladder wall thickening, edema, acute cholecystitis. COMPLICATIONS: None. INDICATIONS FOR THE PROCEDURE: This is a 75-year-old female who was admitted to hospital for acute cholecystitis, cholelithiasis and I recommended to do the laparoscopic cholecystectomy, possible open, possible cholangiogram. I did talk to the patient about the benefit, the risk, alternate procedure. I indicated the risks may include but not limited such as bleeding, infection, injury to other organs, myocardial infarction, DVT, stroke, even . The patient understands. She signed informed consent and I answered all questions. DETAILS OF PROCEDURE: After we identified the patient and verified the procedure, we brought the patient to the OR, put the patient in the supine position. The patient received SCD on bilateral legs to prevent DVT. Also, patient received 2 grams Ancef IV for prophylactic antibiotic and the patient received general anesthesia without difficulties. Abdomen was prepped and draped in routine sterile fashion. After timeout, I injected the local anesthesia by using 1% lidocaine mixed with 0.5% Marcaine just above the umbilicus. Then I made a small incision just above the umbilicus, opened fascia and opened peritoneum under direct vision, put a Darby trocar in, connected to CO2 to create pneumoperitoneum. Flow rate was 6 liter per minute. Pressure not more than 14 mmHg. Once we got a nice pneumoperitoneum, we put the camera in, looked around the abdomen. Normal finding on the liver. However, the gallbladder showed significant inflammation, gallbladder wall thickening, edema, confirmed diagnosis of acute cholecystitis. Then, we put another two 5 mm trocars on the right upper quadrant, and 11 trocar on the epigastric area. Once all trocars in, we used large needle to decompress the gallbladder, because of the gallbladder's significant distention. Once we decompressed the gallbladder, we used a grasper to hold the base of gallbladder, put in the direction to the diaphragm, another grasper to hold the pouch of gallbladder, put a lateral to expunge the triangle of Calot. Cystic duct was identified and mobilized. I put two 10 mm metal clips on the proximal cystic duct, one on the distal cystic duct, then used a scissor for transection of cystic duct. Rechecked, no bile leak. The cystic artery was identified and mobilized. I put two 10 mm metal clips on the proximal cystic artery, one on the distal cystic artery, then used a scissor for transection of cystic artery. Rechecked, no active bleeding. Then we used the Bovie to take down gallbladder from the liver bed and rechecked, no active bleeding, no bile leak from liver bed. Then we removed gallbladder through the catcher bag. Then we reinserted Darby trocar in, connected to CO2 to create pneumoperitoneum, again looked around the abdomen, no active bleeding, no bile leak from liver bed. Then we removed all trocar under direct vision. No active bleeding from the trocar sites. Pneumoperitoneum was released, now closed the umbilical incision, fascial layer by using 0 Vicryl [id number] x2, closed subcutaneous layer by using 2-0 Vicryl interruptedly, closed skin by using 4-0 Vicryl continuous running, closed the epigastric area incision, the fascial layer by using 0 Vicryl [id number] x2, closed subcutaneous layer by using 2-0 Vicryl interruptedly, closed skin by using 4-0 Vicryl interruptedly, closed another two 5 mm trocar site of skin only by using 4-0 Vicryl. Then, we put the dressing on. The patient tolerated the procedure well. All instrument, needle and sponge count were correct x2 at the end of case. The patient transferred to recovery room in stable condition. The specimen sent to pathology. After the procedure, I did talk to the patient about the OR finding and the procedure we did, the patient understands. The first dyer, Sasha is necessary for this procedure and her role is to hold the camera and retraction and exposure. I attest to the content of the Intraoperative Record and any orders documented therein. Any exception s are noted below.
[2021-02-13] MEDS ORDERED: ONDANSETRON 4 MG OD TAB PO PRN (12:30)
[2021-02-13] MEDS ORDERED: cephALEXin 500 MG CAP PO SCH (13:00)
[2021-02-13] MEDS ORDERED: oxyCODONE/ACETAMINOPHEN 5mg/325mg TAB PO PRN (13:07)
--- NOTE | 2021-02-13 14:33 | Hospitalist Progress Note ---
Date of Service February 13, 2021 Assessment & Plan Admission and Anticipated Discharge Date Admission Date: February 13, 2021 Subjective Patient admitted overnight for acute cholecystitis. Underwent cholecystectomy this morning with Dr. Wilson. Currently she is feeling well, lying in bed in no acute distress. She is alert and oriented answering questions appropriately. Denies any chest pain, shortness of breath, has some expected postop abdominal pain. Lungs are clear to auscultation bilaterally without any wheezing rhonchi or crackles. Heart sounds are regular. Abdomen - small incisions covered with dr das, abdomen is soft, positive bowel sounds, only mildly tender to palpation. Patient is ambulating. No lower extremity edema. Skin is warm and dry. Continue to closely monitor, continue Zosyn, clear liquid diet. Surgery following. Augustine Otto MD Results & Data Results & Data ([facility]) Vital Signs (Past 12 Hours) Vital Signs Temp Pulse Pulse Pulse Resp BP BP 02/13/21 14:24 36.6 C 73 18 144/71 H 02/13/21 13:26 36.6 C 74 18 128/73 02/13/21 12:56 36.5 C 69 16 145/71 H 02/13/21 12:22 36.9 C 66 16 132/57 L 02/13/21 12:10 60 18 120/57 L 02/13/21 12:00 36.6 C 54 L 18 126/58 L 02/13/21 11:50 53 L 14 123/62 02/13/21 11:40 69 18 137/69 02/13/21 11:30 65 17 140/74 02/13/21 11:22 36.4 C L 78 14 145/74 H 02/13/21 09:39 37 C 73 16 114/84 02/13/21 07:40 37 C 75 18 138/66 Pulse Ox 02/13/21 14:24 94 02/13/21 13:26 100 02/13/21 12:56 98 02/13/21 12:22 93 02/13/21 12:10 97 02/13/21 12:00 97 02/13/21 11:50 97 02/13/21 11:40 97 02/13/21 11:30 99 02/13/21 11:22 99 02/13/21 09:39 97 02/13/21 07:40 98
--- NOTE | 2021-02-13 15:22 | Electrocardiogram Report ---
Test Reason : Blood Pressure : / mmHG Vent. Rate : 072 BPM Atrial Rate : 072 BPM P-R Int : 158 ms QRS Dur : 084 ms QT Int : 434 ms P-R-T Axes : 066 018 069 degrees QTc Int : 475 ms Normal sinus rhythm Nonspecific ST and T wave abnormality Prolonged QT Abnormal ECG When compared with ECG of 12-FEB-2021 03:23, QT has lengthened Confirmed by Deangelo Jeffery ([id number]) on 02/13/2021 3:21:50 PM Referred By: REFERRED SELF Confirmed By:Deangelo Jeffery
[2021-02-13] MEDS ORDERED: ROSUVASTATIN CALCIUM 10 MG TAB PO SCH (21:00)
[2021-02-13] MEDS ORDERED: EZETIMIBE 10 MG TABLET PO SCH (21:00)
[2021-02-14] MEDS: PIPERACILLIN/TAZOBACTAM 3.375 GM in DEXTROSE 5% 100 ML IV SCH ×2 (00:28→09:10)
[2021-02-14] MEDS: LACTATED RINGER'S 1,000 ML IV SCH (00:29)
[2021-02-14 06:48] LABS: Hematocrit (blood only) 33.7 % (37-47); Hemoglobin 11.3 g/dL (12.0-16.0); Mean Corpuscular Hemoglobin 30.5 pg (25-34); Mean Corpuscular Hgb Conc 33.5 g/dL (32-36); Mean Corpuscular Volume 90.8 fL (80-100); Mean Platelet Volume 9.8 fL (7.4-10.4); Platelet Count 187 K/uL (130-400); RDW Coefficient of Variation 12.8 % (11.5-14.5); Red Blood Count 3.71 M/uL (4.2-5.4); White Blood Count 5.09 K/uL (4.8-10.8)
[2021-02-14 07:14] LABS: BUN Creatinine Ratio 11.9 (10-20); Calcium 8.9 mg/dl (8.5-10.1); Creatinine Clr Calc Pharmacy 50.7 ml/min; Est GFR (African American) 77.1 ml/min; Est GFR (Non-African American) 66.6 ml/min; Magnesium 2.4 mg/dl (1.8-2.4); Potassium 3.4 mmol/L (3.5-5.1)
[2021-02-14 07:21] LABS: Albumin Globulin Ratio 0.9 (0.9-2); Bilirubin,Total 0.7 mg/dl (0.2-1); Globulin 3.3 gm/dl (2.5-4.0); Phosphorus 2.4 mg/dl (2.5-4.9); Total Protein 6.3 gm/dl (6.4-8.2)
[2021-02-14] MEDS ORDERED: POTASSIUM CHLORIDE CRTAB 20 MEQ TABCR PO STA (07:35)
--- NOTE | 2021-02-14 07:49 | Hospitalist Progress Note ---
Date of Service February 14, 2021 Assessment & Plan (1) Acute cholecystitis due to biliary calculus: (2) Cholelithiasis: Gall stone pancreatitis The patient is a 75-year-old F presents with gallstone pancreatitis and cholecystitis. mild elevation of bilirubin plan for mrcp npo, aggressive fluids, pain control repeat lipase in am - decreased significantly empiric zosyn Surgery and GI consult Patient underwent cholecystectomy on February 13 a.m., with Dr. Madrid Currently she feels well, no fevers chills, minimal abdominal pain, feeling hungry currently on clear liquid diet Discussed with Dr. Madrid, will advance diet to regular, plan to discharge later today (02/14), no need for antibiotics on discharge Discharge instructions updated by surgery _ History of hyperlipidemia, continue home meds. DVT prophylaxis, sequential compression devices. DISPOSITION: Plan to [place] home Admission and Anticipated Discharge Date Admission Date: February 13, 2021 Subjective Patient seen in follow-up after acute cholecystitis, patient underwent cholecystectomy yesterday She reports feeling well, no acute events overnight She is asking about advancing her diet and also possible discharge Says she used the pain medication this morning, however feels well overall No fevers, chills, chest pain, shortness of breath, minimal abdominal pain Discussed with Dr. Madrid, from surgery, will advance her diet to regular, plan for discharge later today Review of Systems Review of Systems: All systems reviewed & are unremarkable except as noted in HPI & below Constitutional: no fever and no chills Respiratory: no cough and no dyspnea Cardiovascular: no chest pain and no palpitations Gastrointestinal: + abdominal pain (minimal post-op); no nausea and no vomiting Physical Exam Physical Exam: GENERAL: The patient is of moderate build, not in acute distress. HEENT: NC/AT, Pupils equal, round, reactive to light. Oral mucosa moist. NECK: No JVD. No neck masses, no carotid bruit. CARDIOVASCULAR:RRR S1 and S2 heard. No murmur, no gallop. RESPIRATORY: Normal AP diameter. No accessory muscle use. CTAB, No wheezing, no crackles. ABDOMEN: Soft, bowel sounds present, small incisions covered with dressings, only mildly tender to palpation. NEURO: Alert and oriented x3, speech fluent, no facial symmetry, moves extremities spontaneously EXTREMITIES: No edema, no erythema. Results & Data Results & Data ([facility]) Vital Signs (Past 12 Hours) Vital Signs Temp Pulse Resp BP Pulse Ox 02/14/21 07:39 36.7 C 71 16 155/70 H 94 02/13/21 22:36 36.7 C 96 H 16 130/64 94 Laboratory Results 02/14/21 02/14/21 02/13/21 Range/Units 06:33 06:33 06:43 WBC 5.09 (4.8-10.8) K/uL RBC 3.71 L (4.2-5.4) M/uL Hgb 11.3 L (12.0-16.0) g/dL Hct 33.7 L (37-47) % MCV 90.8 (80-100) fL MCH 30.5 (25-34) pg MCHC 33.5 (32-36) g/dL RDW Std Deviation 43.0 (36.4-46.3) fL RDW Coeff of Leida 12.8 (11.5-14.5) % Plt Count 187 (130-400) K/uL MPV 9.8 (7.4-10.4) fL Sodium 143 (136-145) mmol/L Potassium 3.4 L (3.5-5.1) mmol/L Chloride 111 H (98-107) mmol/L Carbon Dioxide 28 (21-32) mmol/L Anion Gap 4.0 (3-11) BUN 10 (7-18) mg/dl Creatinine 0.85 (0.6-1.2) mg/dl Est Cr Clr Drug Dosing 50.7 ml/min Est GFR ( Amer) 77.1 ml/min Est GFR (Non-Af Amer) 66.6 ml/min BUN/Creatinine Ratio 11.9 (10-20) Glucose 103 H (70-99) mg/dl Calcium 8.9 (8.5-10.1) mg/dl Phosphorus 2.4 L (2.5-4.9) mg/dl Magnesium 2.4 (1.8-2.4) mg/dl Total Bilirubin 0.7 D 1.5 H (0.2-1) mg/dl AST 46 H (15-37) U/L ALT 36 (12-78) U/L Alkaline Phosphatase 58 61 (45-117) U/L Total Protein 6.3 L 5.7 L D (6.4-8.2) gm/dl Albumin 3.0 L (3.4-5.0) gm/dl Globulin 3.3 (2.5-4.0) gm/dl Albumin/Globulin Ratio 0.9 (0.9-2) Medications Administered Current Inpatient Medications Acetaminophen (Acetaminophen 325 Mg Tab) 650 mg PO Q4H PRN PRN Reason: pain/fever Stop: 03/15/21 01:59 Ezetimibe (Ezetimibe 10 Mg Tablet) 10 mg PO HS [facility] Stop: 03/15/21 20:59 Last Admin: 02/13/21 20:48 Dose: 10 mg Documented by: Hydromorphone HCl (Hydromorphone Inj 0.5 Mg/0.5 Ml Syr) 0.5 mg IV Q3H PRN PRN Reason: Pain Stop: 02/27/21 01:59 Piperacillin Sod/Tazobactam (Sod 3.375 gm/ Dextrose) 115 mls @ 28.75 mls/hr IV Q8H CARLI; Protocol Stop: 02/23/21 07:59 Last Infusion: 02/14/21 04:30 Dose: Infused Documented by: Lactated Ringer's (Lr) 1,000 mls @ 80 mls/hr IV .[id number] [facility] Stop: 03/15/21 12:29 Last Admin: 02/14/21 00:29 Dose: 80 mls/hr Documented by: Miscellaneous (Pindolol - Order Awaiting Action) 1 ea N/A QS CARLI Stop: 03/15/21 07:59 Last Admin: 02/14/21 03:58 Dose: Not Given Documented by: Miscellaneous Information (Piperacill/Tazobac Consult Active) 1 ea N/A UD PRN PRN Reason: Consult Stop: 03/15/21 01:59 Ondansetron HCl (Ondansetron Inj 2 Mg/Ml 2 Ml Vial) 4 mg IV Q6H PRN PRN Reason: Nausea Stop: 03/15/21 01:59 Ondansetron HCl (Ondansetron 4 Mg Od Tab) 4 mg PO Q6H PRN PRN Reason: Nausea And Vomiting Stop: 03/15/21 12:29 Oxycodone/Acetaminophen (Oxycodone/Acetaminophen 5mg/325mg Tab) 1 tab PO Q4H PRN PRN Reason: moderate pain Stop: 02/27/21 13:06 Rosuvastatin Calcium (Rosuvastatin Calcium 10 Mg Tab) 10 mg PO Q2D@2100 CARLI Stop: 03/15/21 20:59 Last Admin: 02/13/21 20:48 Dose: 10 mg Documented by: (1) Cholelithiasis Biliary obstruction: without biliary obstruction Cholecystitis presence: without cholecystitis Cholelithiasis location: gallbladder Qualified Code(s): K80.20 - Calculus of gallbladder without cholecystitis without obstruction
--- NOTE | 2021-02-14 10:38 | Discharge Summary ---
Date of Service February 14, 2021 Admission HPI Per Admitting Provider The patient is 75-year-old woman with past medical history significant for hypertension, hyperlipidemia, presents with abdominal pain, and found to have gallstone pancreatitis and cholecystitis. She was in Er earlier in the day workup showed gall bladder sludge discharged to followup as out patient. But was having severe abdominal pain and nausea and came back.. . Currently, pain is under control. No nausea no fever, no chest pain, no shortness of breath, no cough, no headache, no blurred vision, no earache, no runny nose, no sore throat, no nausea. Currently resting comfortable and hemodynamically stable. Admission Exam Per Admitting Provider GENERAL: The patient is of moderate build, not in acute distress. VITAL SIGNS: Temperature 36.8, pulse 64, respiratory rate 20, blood pressure 108/71 96% room air. HEENT: Pupils equal, round, reactive to light. Oral mucosa moist. NECK: No JVD. No neck masses, no carotid bruit. CARDIOVASCULAR: S1 and S2 heard.. No murmur, no gallop. RESPIRATORY SYSTEM: Normal AP diameter. No accessory muscle use. No wheezing, no crackles. ABDOMEN: Soft, bowel sounds present, nontender. no distension. CENTRAL NERVOUS SYSTEM: Cranial nerve II-XII grossly intact, nonfocal. EXTREMITIES: No edema, no erythema. Principal Diagnosis Acute cholecystitis, cholelithiasis Gallstone pancreatitis Discharge Exam GENERAL: The patient is of moderate build, not in acute distress. HEENT: NC/AT, Pupils equal, round, reactive to light. Oral mucosa moist. NECK: No JVD. No neck masses, no carotid bruit. CARDIOVASCULAR:RRR S1 and S2 heard. No murmur, no gallop. RESPIRATORY: Normal AP diameter. No accessory muscle use. CTAB, No wheezing, no crackles. ABDOMEN: Soft, bowel sounds present, small incisions covered with dressings, only mildly tender to palpation. NEURO: Alert and oriented x3, speech fluent, no facial symmetry, moves extremities spontaneously EXTREMITIES: No edema, no erythema. Discharge Data Allergies Allergy/AdvReac Type Severity Reaction Status Date / Time No Known Allergies Allergy Verified 02/12/21 18:46 Consultations 02/12/21 21:33 Consult General Surgery Stat ED Decision to Admit Stat 02/13/21 02:00 Consult General Surgery Routine 02/13/21 08:00 Consult Gastroenterology Routine Procedures Performed Operation Date: 02/13/21 09:40 Actual Procedures p Laparoscopic Cholecystectomy(Not Applicable) - Maria Isabel Madrid MD Ordered Studies 02/12/21 18:56 US abdomen complete Stat IMPRESSION: 1. Mildly distended gallbladder with mild gallbladder wall thickening and multiple small stones/sludge. This is concerning for acute cholecystitis. Clinical correlation recommended. 2. Stable linear hypoechoic focus along the splenic dome which could represent a small amount of subcapsular fluid or splenic infarct. 02/13/21 00:51 MR MRCP Urgent IMPRESSION: 1. Cholelithiasis with pericholecystic fluid. Distended cystic duct with a possible calculus near the common bile duct confluence. The findings may represent acute cholecystitis. Correlation with a nuclear medicine hepatobiliary scan to assess cystic duct patency could be obtained as deemed clinically appropriate. 2. No evidence of intra or extrahepatic biliary ductal dilatation. No common bile duct calculi identified 3. Normal caliber pancreatic duct. 4. Trace perihepatic fluid. Hospital Course (1) Acute cholecystitis due to biliary calculus: (2) Cholelithiasis: Gall stone pancreatitis The patient is a 75-year-old F presents with gallstone pancreatitis and cholecystitis. mild elevation of bilirubin plan for mrcp npo, aggressive fluids, pain control repeat lipase in am - decreased significantly empiric zosyn Surgery and GI consult Patient underwent cholecystectomy on February 13 a.m., with Dr. Madrid Currently she feels well, no fevers chills, minimal abdominal pain, feeling hungry currently on clear liquid diet Discussed with Dr. Madrid, will advance diet to regular, plan to discharge later today (02/14), no need for antibiotics on discharge Discharge instructions updated by surgery _ History of hyperlipidemia, continue home meds. DISPOSITION: Plan to [place] home Total Time Total Time Spent Total Time Spent (In Minutes): 35 Total Time Includes: Examination of the Patient, Discharge Planning, Medication Reconciliation and Communication With Other Providers Discharge Plan Discharge Items Patient Disposition: Home - Self-Care Reason For Visit: ABDOMINAL PAIN, NAUSEA, VOMITING Discharge Diagnosis: Acute cholecystitis, cholelithiasis Gallstone pancreatitis Condition on Discharge: Good Activity: Per Instructions section Non-emergency contact: Primary Care Provider and Surgeon Call non-emergency contact if: you have any medication questions and your symptoms worsen Follow-up/Referrals: Vero Nieto PA-C [Primary Care Provider] - (Date & Time 02/19/2021 11:10 AM Provider Char Mathias [facility] ) Diet: Low Fiber and Low Fat [employer] Attending Provider Instructions: Follow-up with your primary care doctor, the appointment was scheduled for you for February 19. For pain you can take Percocet, as prescribed. Please read instructions per your surgeon, below. Please call the surgeon's office with any questions regarding your surgery or postsurgical care. [employer] Provider Instructions: Post-Surgical ~Discharge Instructions Activity Recommendations: - lifting limitation: (25 pounds for 4 weeks), - exercise/sex/sports limit: (nonstrenuous for 2 weeks), - driving or machine use limit: (none for 1 week or until pain free and no longer taking narcotic pain medication), - Shower/bathe limit: (january shower beginning Wednesday) Diet: - Resume previous diet SPECIAL CARE INSTRUCTIONS: - May shower on Wednesday. May sponge bath and wash hair in meantime. Keep dressings day. On Wednesday, remove outer dressings and let water run over area and pat dry. - Leave steri strips on for one week and then remove. They may fall off on their own that is okay - Call the surgeon's office with any questions or concerns - - (ex. temperature higher than 101 degrees F, excessive bleeding or pain). MEDICATIONS: - Resume previous medications unless instructed otherwise by your surgeon. - May alternate extra strength Tylenol and Ibuprofen as needed for mild pain -500-650 mg Tylenol every 6 hours as needed - Ibuprofen 600 mg every 6 hours as needed (take with food) - Percocet 1 every 6 hours, as needed for moderate to severe pain FOLLOW UP VISIT: - If not already scheduled, please call the office to schedule a two week follow-up appointment. Office number Pending Studies at Discharge: Yes Studies:: Pathology from surgery pending Stand-Alone Forms: My [employer], Smoking Cessation Medications and DC Order Prescriptions: New oxycodone-acetaminophen [Percocet] 5-325 mg Tablet 1 tab PO Q4H PRN (Reason: pain (scale score 7-10)) Qty: 7 RF: 0 Continued pindolol 5 mg tablet 5 mg PO BID RF: 0 ezetimibe 10 mg tablet 10 mg PO HS RF: 0 rosuvastatin 10 mg tablet 10 mg PO Q OTHER DAY RF: 0 cephalexin 500 mg capsule 500 mg PO QID 7 Days Qty: 28 RF: 0 ondansetron HCl [Zofran] 4 mg Tablet 4 mg PO DIRECTED PRN (Reason: NAUSEA/VOMITING) RF: 0 Discharge Orders: Discharge Order (Routine); Ordered 02/14/21 Ordered By: Alexandre Otto Admission Data Admit Date/Time: 02/13/21 00:51 Attending Provider: Alexandre Otto Admit Provider: René Spring Primary Care Provider: Vero Nieto Other Providers: Maria Isabel Madrid ; René Spring ; Matt Ellis ; Sasha Buckley ; Norris Bowie ; Smita Yeager ; Ishaan Duong ; Jose Ramos ; Sushma Mccann ; Alex Myers ; Kenia Hall ; Jackie Sellers ; Letty Maradiaga ; Chantell Mead ; Mukul Cortez
--- NOTE | 2021-02-14 10:52 | Anesthesiology Progress Note ---
Date of Service February 14, 2021 Anesthesia Post Procedure Vital Signs Vital Signs: Temp Pulse Pulse Resp BP BP Pulse Ox 02/14/21 07:39 36.7 C 71 16 155/70 H 94 02/13/21 22:36 36.7 C 96 H 16 130/64 94 02/13/21 16:05 36.9 C 65 18 122/57 L 96 02/13/21 14:24 36.6 C 73 18 144/71 H 94 02/13/21 13:26 36.6 C 74 18 128/73 100 02/13/21 12:56 36.5 C 69 16 145/71 H 98 02/13/21 12:22 36.9 C 66 16 132/57 L 93 02/13/21 12:10 60 18 120/57 L 97 02/13/21 12:00 36.6 C 54 L 18 126/58 L 97 02/13/21 11:50 53 L 14 123/62 97 02/13/21 11:40 69 18 137/69 97 02/13/21 11:30 65 17 140/74 99 02/13/21 11:22 36.4 C L 78 14 145/74 H 99 Pain Intensity Right Upper Abdomen: Pain Intensity: 0 Transfer of Care Handoff Completed per policy Notes Mental Status: alert / awake / arousable Patient Amnestic to Procedure: Yes Nausea / Vomiting: adequately controlled Pain: adequately controlled Airway Patency, RR, SpO2: stable & adequate BP & HR: stable & adequate Hydration State: stable & adequate Anesthetic Complications: no major complications apparent and Pt Satisfied with anesthetic care
--- NOTE | 2021-02-14 12:15 | Surgery Progress Note ---
Date of Service F/U S/P lap Dmitry, pancreatitis, POD 1 pt is doing fine, no abdominal pain, no back pain, , tolerated diet, lipase 700 February 14, 2021 Assessment & Plan (1) Cholelithiasis: (2) Acute cholecystitis due to biliary calculus: pt is a 75 year-old female who presents to Er with one day history RUQ pain, IMP: acute cholecystitis, cholelithiasis, pancreatitis, Plan, recommend - medicine team admit pt to hospital, conservative treatment first, NPO, IV fluid, IV antibiotic, control pain, MRCP, consult GI for possible ERCP for CBD stone, I will do laparoscopic cholecystectomy after ERCP and lipase down close to normal, repeat labs in morning,pt agrees with the plan, I answered all questions, will F/U Thanks, 02/13/2021 7:27AM acute cholecystitis, cholelithiasis MRCP- acute cholecystitis, cholelithiasis, I recommend to do laparoscopic cholecystectomy, possible open or cholangiogram, D/w benefits, risks nad alternatives of the surgery, the risks - infection, bleeding, injury other organs, may need ERCP, PA, DVT, stroke, , pt understood, she agrees with the surgery, I answered all questions, 02/14/2021 12:13PM S/P lap dmitry, POD 1 doing fine, pt can be discharged today, keep the dressing on for 4 days, no heavy lifting > 25 LBS for 4 weeks, she can take a shower on 02/18/2021, F/U ak 2 weeks, , Thanks, (3) Pancreatitis due to biliary obstruction: Admission and Anticipated Discharge Date Admission Date: February 13, 2021 Subjective Patient seen in follow-up after acute cholecystitis, patient underwent cholecystectomy yesterday She reports feeling well, no acute events overnight She is asking about advancing her diet and also possible discharge Says she used the pain medication this morning, however feels well overall No fevers, chills, chest pain, shortness of breath, minimal abdominal pain Discussed with Dr. Madrid, from surgery, will advance her diet to regular, plan for discharge later today Review of Systems Constitutional: as per Subjective / HPI Eyes: as per Subjective / HPI Ear, Nose, Mouth, Throat: as per Subjective / HPI Respiratory: as per Subjective / HPI Cardiovascular: as per Subjective / HPI Additional Comments: HTN Gastrointestinal: as per Subjective / HPI GERD, cholelithiasis Genitourinary: urinary frequency Musculoskeletal: as per Subjective / HPI Integumentary: as per Subjective / HPI Neurologic: as per Subjective / HPI Psychiatric: as per Subjective / HPI Endocrine: as per Subjective / HPI Hematologic / Lymphatic: as per Subjective / HPI Physical Exam Constitutional: WD/WN, vitals as above well developed and well nourished Eyes: PERRL, conjunctivae normal, anicteric sclerae ENMT: external ear and nose normal, oropharynx normal Neck: trachea midline, no thyromegaly Respiratory: normal respiratory effort, lungs clear to auscultation normal respiratory effort Cardiovascular: RRR, no murmur, no edema Rate/Rhythm: regular rate and regular rhythm Gastrointestinal (Abdomen): normal bowel sounds, soft, nontender, no hepatosplenomegaly Percussion/Palpation: abdomen soft all incisions intact, no redness, no tenderness, Musculoskeletal: no cyanosis or clubbing, extremities motor strength 5/5 Skin: no rashes, warm and dry Neurologic: awake Psychiatric: Orientation: alert and oriented x 3 Results & Data ([facility]) Vital Signs (Past 12 Hours) Vital Signs Temp Pulse Pulse Resp BP BP Pulse Ox 02/14/21 11:12 36.7 C 60 71 16 144/71 H 155/70 H 94 02/14/21 07:39 36.7 C 71 16 155/70 H 94 Laboratory Results Abnormal lab results 02/14/21 02/14/21 02/14/21 Range/Units 06:33 06:33 06:33 RBC 3.71 L (4.2-5.4) M/uL Hgb 11.3 L (12.0-16.0) g/dL Hct 33.7 L (37-47) % Potassium 3.4 L (3.5-5.1) mmol/L Chloride 111 H (98-107) mmol/L Glucose 103 H (70-99) mg/dl Phosphorus 2.4 L (2.5-4.9) mg/dl AST 46 H (15-37) U/L Total Protein 6.3 L (6.4-8.2) gm/dl Albumin 3.0 L (3.4-5.0) gm/dl Lipase 734 H (73-393) U/L (1) Cholelithiasis Biliary obstruction: without biliary obstruction Cholecystitis presence: without cholecystitis Cholelithiasis location: gallbladder Qualified Code(s): K80.20 - Calculus of gallbladder without cholecystitis without obstruction (2) Pancreatitis due to biliary obstruction Acute pancreatitis complication: no infection or necrosis Chronicity: acute Qualified Code(s): K85.10 - Biliary acute pancreatitis without necrosis or infection
== END 2021-02-14 13:42 | disposition home or self-care (01) | DRG 417 ==
LOC: ED 17:45 → 3N 02-13 00:51